=== PATIENT | female | born 1990 | race Caucasian/White ===

== ENCOUNTER 2024-09-07 09:16 | Emergency (ER) | payer BC, OTHER ==
[~2024-09-07] VITALS: Ht 165.1 cm; Wt 112.3 kg
[2024-09-07 10:13] VITALS: BP 134/80; PULSE 76; RESP 16; TEMP 98.2; O2SAT 98
--- NOTE | 2024-09-07 10:20 | ED.PDOC ---
DECORATOR CONSULTANT HPI Comments A 34 YEAR OLD FEMALE PRESENTS TO THE ED WITH COMPLAINT OF VAGINAL SPOTTING AND PELVIC CRAMPING DURING . PATIENT STATES SHE IS CURRENTLY ABOUT 5 WEEKS AND BEGAN TO EXPERIENCE PELVIC CRAMPING WITH VAGINAL SPOTTING OVER THE LAST 2 DAYS. PATIENT DENIES DYSURIA, HEMATURIA, VAGINAL DISCHARGE, FEVER, CHILLS, SHORTNESS OF BREATH, CHEST PAIN, ABDOMINAL PAIN, NAUSEA, VOMITING, HEADACHE, OR OTHER COMPLAINTS. NO OTHER SYMPTOMS OR MODIFYING FACTORS AT THIS TIME. PATIENT IS ALERT, ORIENTED X 4, AND HAS STEADY GAIT. Chief Complaint: Vaginal Bleed Time Seen by MD: 09:33 Reviewed Notes: Nurses Notes, Medications, Allergies Home Meds Active Scripts Nitrofurantoin Monohydrate Mac (Macrobid) 100 Mg Cap, 100 MG PO BID, #14 CAP Prov:ANIYA FRAUSTO 09/07/24 Information Source: Patient Mode of Arrival: Ambulatory Timing: Days Prehospital treatment: None Severity: Moderate Vaginal Discharge: None Vaginal Lesions: None Bleeding Quality: Bright Red Vaginal Mass: None Onset Of Mass/Bleeding: Spontaneous Sexual Activity: Last Consensual [place]: Unknown Control: None History of: Current Blood Type: Unknown Symptoms of Possible : None Associated Signs and Symptoms: Vaginal Bleeding (VAGINAL SPOTTING ), Cramping Past Medical History PAST MEDICAL HISTORY: Denies Surgical History: Denies all surgeries LESSON INSTRUCTOR History: No Pertinent LESSON INSTRUCTOR History Family History Family History: Reviewed,noncontributory to illness Social History Smoker: Non-Smoker Alcohol: Denies ETOH Use Drugs: Denies Drug Use Lives In: Home Constitutional: denies: chills, diaphoresis, fatigue, fever, malaise, sweats, weakness, others EENTM: denies: blurred vision, double vision, ear bleeding, ear discharge, ear drainage, ear pain, ear ringing, eye pain, eye redness, hearing loss, mouth pain, mouth swelling, nasal discharge, nose bleeding, nose congestion, nose pain, photophobia, tearing, throat pain, throat swelling, voice changes, others Respiratory: denies: cough, hemoptysis, orthopnea, SOB at rest, shortness of breath, SOB with excertion, stridor, wheezing, others Cardiovascular: denies: chest pain, dizzy spells, diaphoresis, Dyspnea on exertion, edema, irregular heart beat, left arm pain, lightheadedness, palpitations, PND, syncope, others Gastrointestinal: denies: abdomen distended, abdominal pain, blood streaked bowels, constipated, diarrhea, dysphagia, difficulty swallowing, hematemesis, melena, nausea, poor appetite, poor fluid intake, rectal bleeding, rectal pain, vomiting, others Genitourinary: reports: abnormal vagina bleeding, pain (PELVIC CRAMPING), ; denies: burning, dyspareunia, dysuria, flank pain, frequency, hematuria, incontinence, vagina discharge, urgency, others Neurological: denies: dizziness, fainting, headache, left sided numbness, left sided weakness, numbness, paresthesia, pre-existing deficit, right sided numbness, right sided weakness, seizure, speech problems, tingling, tremors, weakness, others Musculoskeletal: denies: back pain, gout, joint pain, joint swelling, muscle pain, muscle stiffness, neck pain, others Integumetry: denies: bruises, change in color, change in hair/nails, dryness, laceration, lesions, lumps, rash, wounds, others Allergic/Immunocompromised: denies: Difficulty Healing, Frequent Infections, Hives, Itching, others Hematologic/Lymphatic: denies: anemia, blood clots, easy bleeding, easy bruising, swollen glands, others Endocrine: denies: excessive hunger, excessive sweating, excessive thirst, excessive urination, flushing, intolerance to cold, intolerance to heat, unexplained weight gain, unexplained weight loss, others Psychiatric: denies: anxiety, bipolar disorder, depression, hopeless, panic disorder, schizophrenia, sleepless, suicidal, others All Other Systems: Reviewed and Negative Physical Exam General Appearance: No Apparent Distress, Normal HEENT: Normal ENT Inspection, PERRL/EOMI, Pharynx Normal, TMs Normal Neck: Full Range of Motion, Non-Tender, Normal, Normal Inspection Respiratory: Chest Non-Tender, Lungs Clear, No Accessory Muscle Use, No Respiratory Distress, Normal Breath Sounds Cardiovascular: No Edema, No JVD, No Murmur, No Gallop, Normal Peripheral Pulses, Regular Rate/Rhythm Breast Exam: Deferred Gastrointestinal: No Organomegaly, Non Tender, No Pulsatile Mass, Normal Bowel Sounds, Soft Genitalia: Deferred Pelvic: Normal Adnexa, Normal External Exam, Tender Uterus, Other (VAGINAL SPOTTING, NO VAGINAL BLEEDING AND BLOOD CLOTS. ) Rectal: Deferred Extremities: No calf tenderness, Normal capillary refill, Normal inspection, Normal range of motion, Non-tender, No pedal edema Musculoskeletal : Apperance: Normal Neurologic: Alert, gold tooler II-XII nml as Tested, No Motor Deficits, Normal Affect, Normal Mood, No Sensory Deficits Cerebellar Function: Normal Reflexes: Normal Skin: Dry, Normal Color, Warm Peripheral Pulses: 2+ carotid (R), 2+ carotid (L) Lymphatic: No Adenopathy Was a procedure done? Was a procedure done?: No Differential Diagnosis (LESSON INSTRUCTOR) Vaginal Bleeding: - Complete, - Incomplete, - Missed, - Threatened, Menstrual Bleeding, UTI, Vaginitis Mass / Lesion: N/A Vaginal Discharge: UTI, N/A X-Ray, Labs, Meds, VS Vital Signs Date Time Temp Pulse Resp B/P (MAP) Pulse Ox O2 Delivery O2 Flow Rate FiO2 09/07/24 10:13 98.2 76 16 134/80 (98) 98 98.2 09/07/24 10:13 76 16 98 Room Air 09/07/24 10:09 98.2 76 16 139/80 (99) 98 Lab Test 09/07/24 10:13 09/07/24 09:58 Range/Units Urine Color Light-yellow Yellow Urine Clarity Turbid H Clear Urine pH 6.5 5.0-9.0 Urine Specific P[place]ree 1.009 1.001-1.035 Urine Protein Negative Negative Urine Ketones Trace Negative Urine Blood 2+ H Negative /uL Urine Nitrite Negative Negative Urine Bilirubin Negative Negative Urine Urobilinogen Normal Negative mg/dL Urine Leukocyte Esterase 3+ Negative /uL Urine RBC 10 0 - 4 /hpf Urine WBC 8 0 - 5 /hpf Urine Squamous Epithelial Cells Few <5 /hpf Urine Bacteria Few H None Seen /hpf Urine Mucus Few None Seen Urine Glucose Normal Normal mg/dL White Blood Count 10.2 4.4-10.8 10^3/uL Red Blood Count 4.31 4.0-5.20 10^6/uL Hemoglobin 13.7 12.2-16.2 g/dL Hematocrit 39.4 36.0-46.0 % Mean Corpuscular Volume 91.5 80.0-100.0 fL Mean Corpuscular Hemoglobin 31.8 28.0-32.0 pg Mean Corpuscular Hemoglobin Concent 34.8 32.0-36.0 g/dL Red Cell Distribution Width 13.0 11.8-14.3 % Platelet Count 331 140-450 10^3/uL Mean Platelet Volume 7.0 6.9-10.8 fL Neutrophils (%) (Auto) 62.9 37.0-80.0 % Lymphocytes (%) (Auto) 29.5 10.0-50.0 % Monocytes (%) (Auto) 6.0 0.0-12.0 % Eosinophils (%) (Auto) 1.3 0.0-7.0 % Basophils (%) (Auto) 0.3 0.0-2.0 % Neutrophils # (Auto) 6.4 1.6-8.6 10 ^3/uL Lymphocytes # (Auto) 3.0 0.4-5.4 10 ^3/uL Monocytes # (Auto) 0.6 0-1.3 10 ^3/uL Eosinophils # (Auto) 0.1 0-0.8 10 ^3/uL Basophils # (Auto) 0 0-0.2 10 ^3/uL Nucleated Red Blood Cells 0.1 % Beta HCG, Quantitative 1515.2 H 1.5-4.2 mIU/mL OB ULTRASOUND <14 WEEKS: HISTORY: VAGINAL SPOTTING TECHNIQUE: Multiple real-time grayscale sonographic images of the pelvis with duplex Doppler color flow, spectral and M-mode analysis. TRANSDUCERS: Transabdominal and transvaginal FINDINGS: The uterus measures 8.2 x 4.5 x 4.5 cm The cervix well visualized. Right ovary measures 3.4 x 1.9 x 2.6 with normal Doppler color flow. There is a right ovarian corpus luteal cyst measuring 1.8 cm. Left ovary measures 2.0 x 1.2 x 2.4 with normal Doppler color flow Possible gestational sac measuring 0.4 cm. IMPRESSION: Possible gestational sac measuring 0.4 cm. Recommend correlation with beta HCG and short-term follow-up pelvic ultrasound. ATED BY: JUWAN BARRAGAN MD DICTATED DATE/TIME: 09/07/24 1250 SIGNED BY: JUWAN BARRAGAN MD SIGNED DATE/TIME: 09/07/24 1250 CC: X-Ray, Labs, Meds, VS Comment EXTERNAL MEDICAL RECORDS REVIEWED: [NONE] INDEPENDENT HISTORIANS: [NONE] SOCIAL DETERMINANTS OF HEALTH: [NONE] LABS ORDERED: CBC, BMP, UA, URINE , BETA HCG QUANT REVIEWED AND INTERPRETED RESULTS: HCG QUANT 1515, LEUKO 3+ IMAGING ORDERED: US OB < 14 WKS TREATMENTS ORDERED: NONE PROCEDURES PERFORMED: NONE CRITICAL CARE TIME: NONE I HAVE DISCUSSED THE PATIENT WITH THE ATTENDING PHYSICIAN DR. PAYNE AND HE AGREES WITH THE PATIENT'S PLAN OF CARE AND DISPOSITION. BASED ON HISTORY OF PRESENT ILLNESS, AND PHYSICAL EXAM, PATIENT WILL BE DISCHARGED HOME. DISCUSSED PLAN FOR DISCHARGE HOME WITH RX [MACROBID]. MEDICATION WARNINGS GIVEN. SHARED DECISION MAKING: DISCUSSED WITH PATIENT THAT THEIR WORKUP WAS NORMAL. PATIENT INSTRUCTED TO FOLLOW UP WITH PRIMARY CARE PROVIDER IN 1-2 DAYS FOR RE- EVALUATION OF SYMPTOMS. PATIENT VERBALIZES UNDERSTANDING TO RETURN TO ED FOR NEW OR WORSENING SYMPTOMS OR IF FOLLOW UP WITH PCP CANNOT BE OBTAINED. PATIENT FEELS COMFORTABLE GOING HOME AT THIS TIME. ALL QUESTIONS ADDRESSED AT TIME OF DISCHARGE. Images Reviewed?: Images reviewed and evaluated by me Time of 1ST Reevaluation: 12:52 Reevaluation 1ST: Improved Patient Education/Counseling: Diagnosis, Treatment, Need For Follow Up Family Education/Counseling: Diagnosis, Treatment, Need For Follow Up Medical Screening: No EMC Exist At This Time Departure 1 Departure Time of Disposition: 13:00 Impression: Primary Impression: Vaginal spotting Additional Impressions: Threatened in early Acute UTI (urinary tract infection) Disposition: 01 HOME / SELF CARE / HOMELESS Condition: Stable Additional Instructions: FOLLOW-UP WITH PCP AND DECORATOR CONSULTANT IN 1 TO 2 DAYS. TAKE MEDICATIONS PRESCRIBED. RETURN TO ED FOR ANY NEW OR WORSENING SYMPTOMS. e-Prescriptions Nitrofurantoin Monohydrate Mac (Macrobid) 100 Mg Cap 100 MG PO BID, #14 CAP Prov: ANIYA FRAUSTO 09/07/24 Discharged With: Self Critical Care Note Critical Care Time?: No Stability Stability form required: No I personally scribed for ANIYA FRAUSTO ([email or web address]) on 09/07/24 at 10:20. Electronically submitted by Chris Chan ([email or web address]). I personally scribed for ANIYA FRAUSTO ([email or web address]) on 09/07/24 at 12:48. Electronically submitted by Chris Chan ([email or web address]). I personally scribed for ANIYA FRAUSTO ([email or web address]) on 09/07/24 at 12:54. Electronically submitted by Chris Chan ([email or web address]). ANIYA FRAUSTO Sep 07, 2024 10:20
[2024-09-07 11:08] LABS: Basophils # (auto) 0 10 ^3/uL (0-0.2); Basophils % (auto) 0.3 % (0.0-2.0); Eosinophils # (auto) 0.1 10 ^3/uL (0-0.8); Eosinophils % (auto) 1.3 % (0.0-7.0); Hematocrit 39.4 % (36.0-46.0); Hemoglobin 13.7 g/dL (12.2-16.2); Lymphocytes % (auto) 29.5 % (10.0-50.0); Mean Corpuscular Hemoglobin 31.8 pg (28.0-32.0); Mean Corpuscular Hgb Conc. 34.8 g/dL (32.0-36.0); Mean Corpuscular Volume 91.5 fL (80.0-100.0); Monocytes # (auto) 0.6 10 ^3/uL (0-1.3); Neutrophils # (auto) 6.4 10 ^3/uL (1.6-8.6); Neutrophils % (auto) 62.9 % (37.0-80.0); Nucleated Red Blood Cells % 0.1 %; Platelet Count (auto) 331 10^3/uL (140-450); Red Blood Cells 4.31 10^6/uL (4.0-5.20); White Blood Cell 10.2 10^3/uL (4.4-10.8)
[2024-09-07 11:25] LABS: Urine Bacteria FEW /hpf (None Seen); Urine Blood 2+ /uL (Negative); Urine Clarity Turbid (Clear); Urine Color Light-Yellow (Yellow); Urine Mucus FEW (None Seen); Urine Protein, UAD Negative (Negative); Urine Specific Gravity 1.009 (1.001-1.035); Urine Squamous Epithelial Cell FEW /hpf (<5); Urine Urobilinogen Normal (Negative); Urine WBC 8 /hpf (0 - 5); Urine pH 6.5 (5.0-9.0)
--- NOTE | 2024-09-07 12:51 | DVH ---
OB ULTRASOUND <14 WEEKS: HISTORY: VAGINAL SPOTTING TECHNIQUE: Multiple real-time grayscale sonographic images of the pelvis with duplex Doppler color f low, spectral and M-mode analysis. TRANSDUCERS: Transabdominal and transvaginal FINDINGS: The uterus measures 8.2 x 4.5 x 4.5 cm The cervix well visualized. Right ovary measures 3.4 x 1.9 x 2.6 with normal Doppler color flow. There is a right ovarian corpus luteal cyst measuring 1.8 cm. Left ovary measures 2.0 x 1.2 x 2.4 with normal Doppler color flow Possible gestational sac measuring 0.4 cm. IMPRESSION: Possible gestational sac measuring 0.4 cm. Recommend correlation with beta HCG and short-term follow- up pelvic ultrasound.
[2024-09-07] MEDS ORDERED: NITR-87 PO (12:53)
== END 2024-09-07 12:59 | disposition home or self-care (01) ==
LOC: ER 09:16
DX: O26.851 Spotting complicating pregnancy, first trimester (principal); O20.0 Threatened abortion; O23.41 Unspecified infection of urinary tract in pregnancy, first trimester; N39.0 Urinary tract infection, site not specified; Z3A.01 Less than 8 weeks gestation of pregnancy; Z79.899 Other long term (current) drug therapy
CPT/HCPCS: 36415; 76801; 76817; 81001; 84702; 85025

== ENCOUNTER 2025-02-28 14:55 | Observation (INO) | payer BC ==
[~2025-02-28 14:55] MED LIST: NITR-87 PO
[2025-02-28] MEDS ORDERED: PREN-96 PO (15:36)
--- NOTE | 2025-02-28 17:20 | DVHDS2 ---
Physician Discharge Progress N Final Diagnosis: testing for IUGR/GDM, A1 Operations or Procedures: Operations or Procedures 35yo IUP@29.6wks VSS NST reactive for GA FKC/PTL precautions reviewed. Dr. Preston consulted, agrees with POC. Condition on Discharge: Stable Disposition: Home Discharge Instructions: Diet: Consistent carbohydrate Activity: No Restrictions, As Tolerated Medications: see med list Follow Up Care: Specialist: f/u in 1 wk Discharge Statement: "Patient was advised to return to the ER or call 911 if any headaches, dizziness, shortness of breath, chest pain, abdominal pain, bleeding, fevers, or worsening of medical condition. Patient was counseled about treatment plan, medications, possible side effects, patientverbalized understanding. All questions were answered to the best of my ability. This discharge took greater then 30 minutes in planning, reviewing documentation, counseling the patient, and discussing with other team members." Visit Coding OBGYN Date of Service: Feb 28, 2025 Billing Provider: MENDEZ GARCIA CNM PEPPER CUTTER Common Visit Codes: 20241-CFTWOPN OBS CARE (HIGH) PEPPER CUTTER Procedure Codes: 94055-38- NON-STRESS TEST MENDEZ GARCIA CNM Feb 28, 2025 17:20
== END 2025-02-28 15:51 | disposition home or self-care (01) ==
LOC: LDRP 14:55
PROVIDERS: ADMIT Obstetrics & Gynecology; ATTEND Obstetrics & Gynecology
DX: O36.5930 Maternal care for other known or suspected poor fetal growth, third trimester, not applicable or unspecified (principal); O24.419 Gestational diabetes mellitus in pregnancy, unspecified control; Z98.890 Other specified postprocedural states; Z79.899 Other long term (current) drug therapy; Z3A.29 29 weeks gestation of pregnancy
CPT/HCPCS: 59025; 81002; 82948; 82962; 94760; G0378

== ENCOUNTER 2025-03-07 07:11 | Observation (INO) | payer BC ==
[~2025-03-07 07:11] MED LIST changes: +PREN-96 PO
--- NOTE | 2025-03-07 18:54 | DVHDS2 ---
Physician Discharge Progress N Final Diagnosis: testing for IUGR/GDM, A1 Operations or Procedures: Operations or Procedures 35yo IUP@30.4wks VSS NST reactive FKC/PTL precautions reviewed Dr. Preston consulted, agrees with POC. Condition on Discharge: Stable Disposition: Home Discharge Instructions: Diet: Consistent carbohydrate Activity: No Restrictions, As Tolerated Medications: see med list Follow Up Care: Specialist: f/u in 1wk Discharge Statement: "Patient was advised to return to the ER or call 911 if any headaches, dizziness, shortness of breath, chest pain, abdominal pain, bleeding, fevers, or worsening of medical condition. Patient was counseled about treatment plan, medications, possible side effects, patientverbalized understanding. All questions were answered to the best of my ability. This discharge took greater then 30 minutes in planning, reviewing documentation, counseling the patient, and discussing with other team members." Visit Coding OBGYN Date of Service: Mar 07, 2025 Billing Provider: MENDEZ GARCIA CNM STARCH TREATING ASSISTANT Common Visit Codes: [id number] OBS CARE (HIGH) STARCH TREATING ASSISTANT Procedure Codes: 17360-96- NON-STRESS TEST MENDEZ GARCIA CNM Mar 07, 2025 18:54
== END 2025-03-07 16:30 | disposition home or self-care (01) ==
LOC: UNDOADMOB 15:00 → LDRP 15:00
PROVIDERS: ADMIT Obstetrics & Gynecology; ATTEND Obstetrics & Gynecology
DX: O36.5930 Maternal care for other known or suspected poor fetal growth, third trimester, not applicable or unspecified (principal); O24.419 Gestational diabetes mellitus in pregnancy, unspecified control; Z3A.30 30 weeks gestation of pregnancy; Z79.899 Other long term (current) drug therapy; Z98.890 Other specified postprocedural states
CPT/HCPCS: 59025; 81002; 82948; 82962; G0378

== ENCOUNTER 2025-03-14 09:33 | Observation (INO) | payer BC ==
--- NOTE | 2025-03-14 16:58 | DVHDS2 ---
Physician Discharge Progress N Final Diagnosis: testing for IUGR and GDM, A1 Operations or Procedures: Operations or Procedures 35yo IUP@31.6wks VSS NST reactive FKC/PTL precautions reviewed Dr. Preston consulted, agrees with POC. Condition on Discharge: Stable Disposition: Home Discharge Instructions: Diet: Consistent carbohydrate Activity: No Restrictions, As Tolerated Medications: see med list Follow Up Care: Specialist: f/u in 1wk Discharge Statement: "Patient was advised to return to the ER or call 911 if any headaches, dizziness, shortness of breath, chest pain, abdominal pain, bleeding, fevers, or worsening of medical condition. Patient was counseled about treatment plan, medications, possible side effects, patientverbalized understanding. All questions were answered to the best of my ability. This discharge took greater then 30 minutes in planning, reviewing documentation, counseling the patient, and discussing with other team members." Visit Coding OBGYN Date of Service: Mar 14, 2025 Billing Provider: MENDEZ GARCIA CNM GREY ROLL WORKER Common Visit Codes: 48653-AHHSCRD OBS CARE (HIGH) GREY ROLL WORKER Procedure Codes: 48125-21- NON-STRESS TEST MENDEZ GARCIA CNM Mar 14, 2025 16:58
== END 2025-03-14 16:49 | disposition home or self-care (01) ==
LOC: LDRP 15:45
PROVIDERS: ADMIT Obstetrics & Gynecology; ATTEND Obstetrics & Gynecology
DX: O24.419 Gestational diabetes mellitus in pregnancy, unspecified control (principal); O36.5930 Maternal care for other known or suspected poor fetal growth, third trimester, not applicable or unspecified; Z3A.31 31 weeks gestation of pregnancy; Z98.890 Other specified postprocedural states; Z79.899 Other long term (current) drug therapy
CPT/HCPCS: 59025; 81002; 82948; 82962; G0378

== ENCOUNTER 2025-03-21 15:55 | Observation (INO) | payer BC ==
--- NOTE | 2025-03-21 17:31 | DVH ---
BIOPHYSICAL PROFILE HISTORY: GDMA1/IUGR TECHNIQUE: Multiple transabdominal real-time grayscale sonographic images through the gravid uterus of the fetus with duplex Doppler color flow and M-mode spectral analysis FINDINGS: BIOPHYSICAL PROFILE: breathing score: 2 movement score: 2 tone score: 2 Quantitative DIONE score: 2 (DIONE: 14 Cm MVP: 5.3 cm.) Total score: 8/8 The cervix 4.1 cm Single live fetus in cephalic presentation. heart rate beats per minute. Posterior Grade 2 placenta without previa or abruption Single live fetus at 32 weeks 6 days Biophysical profile score 8/8 corresponding to an MYAH of 05/10/2025 IMPRESSION: 1. Biophysical profile score: 8/8
--- NOTE | 2025-03-21 18:31 | DVHDS2 ---
Physician Discharge Progress N Final Diagnosis: testing for GDM, A1 Operations or Procedures: Operations or Procedures 35yo IUP@32.6wks VSS NST reactive FKC/PTL precautions reviewed Dr. Preston consulted, agrees with POC. Other Interventions Other Interventions [address] [address] Ph: [phone] DIAGNOSTIC IMAGING Diagnostic Imaging Report : [id number] Signed PATIENT: LUISA SOTELO ACCT: [id number] UNIT: [id number] : 1990 LOC: [facility] ROOM / BED: TRIAGE2 / A AGE / SEX: 35 / F ADM STATUS: ADM IN SERVICE 1607 ORDERING PHYSICIAN: MENDEZ GARCIA CNM PROCEDURE(s): BPP - BIOPHYSICAL PROFILE REASON: GDMA1/IUGR ORDER NUMBER(s): [id number], ACCESSION NUMBER(s): [id number] BIOPHYSICAL PROFILE HISTORY: GDMA1/IUGR TECHNIQUE: Multiple transabdominal real-time grayscale sonographic images through the gravid uterus of the fetus with duplex Doppler color flow and M-mode spectral analysis FINDINGS: BIOPHYSICAL PROFILE: breathing score: 2 movement score: 2 tone score: 2 Quantitative DIONE score: 2 (DIONE: 14 Cm MVP: 5.3 cm.) Total score: 8/8 The cervix 4.1 cm Single live fetus in cephalic presentation. heart rate beats per minute. Posterior Grade 2 placenta without previa or abruption Single live fetus at 32 weeks 6 days Biophysical profile score 8/8 corresponding to an MYAH of 05/10/2025 IMPRESSION: 1. Biophysical profile score: 8/8 ATED BY: JEFE BAIN Jr., DO DICTATED DATE/TIME: 03/21/251727 SIGNED BY: JEFE BAIN Jr., DO SIGNED DATE/TIME: 03/21/251727 CC: Condition on Discharge: Stable Disposition: Home Discharge Instructions: Diet: Consistent carbohydrate Activity: No Restrictions, As Tolerated Medications: see med list Follow Up Care: Specialist: f/u in 1 wk Discharge Statement: "Patient was advised to return to the ER or call 911 if any headaches, dizziness, shortness of breath, chest pain, abdominal pain, bleeding, fevers, or worsening of medical condition. Patient was counseled about treatment plan, medications, possible side effects, patientverbalized understanding. All questions were answered to the best of my ability. This discharge took greater then 30 minutes in planning, reviewing documentation, counseling the patient, and discussing with other team members." Visit Coding OBGYN Date of Service: Mar 21, 2025 Billing Provider: MENDEZ GARCIA CNM CYBER SYSTEMS ENGINEER Common Visit Codes: [id number] OBS CARE (HIGH) CYBER SYSTEMS ENGINEER Procedure Codes: 02742-49- NON-STRESS TEST MENDEZ GARCIA CNM Mar 21, 2025 18:31
== END 2025-03-21 17:27 | disposition home or self-care (01) ==
LOC: LDRP 15:55
PROVIDERS: ADMIT Obstetrics & Gynecology; ATTEND Obstetrics & Gynecology
DX: O24.419 Gestational diabetes mellitus in pregnancy, unspecified control (principal); Z79.899 Other long term (current) drug therapy; Z3A.32 32 weeks gestation of pregnancy
CPT/HCPCS: 76818; 81002; 82948; 82962; 94760; G0378; 59025; 76819

== ENCOUNTER 2025-03-28 14:00 | Observation (INO) | payer BC ==
--- NOTE | 2025-03-28 16:21 | DVHDS2 ---
Physician Discharge Progress N Final Diagnosis: testing for GDM, A1 Operations or Procedures: Operations or Procedures 35yo IUP@33.6WKS VSS NST reactive FKC/PTL precautions reviewed Dr. Preston consulted, agrees with POC. Other Interventions Other Interventions [address] [address] Ph: [phone] DIAGNOSTIC IMAGING Diagnostic Imaging Report : [id number] Signed PATIENT: LUISA SOTELO ACCT: [id number] UNIT: [id number] : 1990 LOC: LD ROOM / BED: TRIAGE1 / A AGE / SEX: 35 / F ADM STATUS: ADM IN SERVICE 1615 ORDERING PHYSICIAN: MENDEZ GARCIA CNM PROCEDURE(s): BPP - BIOPHYSICAL PROFILE REASON: GDMA1 ORDER NUMBER(s): [id number], ACCESSION NUMBER(s): [id number] BIOPHYSICAL PROFILE HISTORY: GDMA1 TECHNIQUE: Multiple transabdominal real-time grayscale sonographic images through the gravid uterus of the fetus with duplex Doppler color flow and M-mode spectral analysis FINDINGS: BIOPHYSICAL PROFILE: breathing score: 2 movement score: 2 tone score: 2 Quantitative DIONE score: 2 (DIONE: 16 Cm.) Total score: 8 The cervix is closed measuring 3.6 cm Single live fetus in cephalic presentation. heart rate 130 beats per minute. Posterior placenta without previa or abruption IMPRESSION: Biophysical profile score: 8 ATED BY: JOHANNA JUARES DO DICTATED DATE/TIME: 03/28/251657 SIGNED BY: JOHANNA JUARES DO SIGNED DATE/TIME: 03/28/251657 CC: Condition on Discharge: Stable Disposition: Home Discharge Instructions: Diet: Consistent carbohydrate Activity: No Restrictions, As Tolerated Medications: see med list Follow Up Care: Specialist: f/u in 1 wk Discharge Statement: "Patient was advised to return to the ER or call 911 if any headaches, dizziness, shortness of breath, chest pain, abdominal pain, bleeding, fevers, or worsening of medical condition. Patient was counseled about treatment plan, medications, possible side effects, patientverbalized understanding. All questions were answered to the best of my ability. This discharge took greater then 30 minutes in planning, reviewing d ocumentation, counseling the patient, and discussing with other team members." Visit Coding OBGYN Date of Service: Mar 28, 2025 Billing Provider: MENDEZ GARCIA CNM SQL DATA ANALYST Common Visit Codes: 08694-[id number] OBS CARE (HIGH) SQL DATA ANALYST Procedure Codes: 37539-96- NON-STRESS TEST MENDEZ GARCIA CNM Mar 28, 2025 16:21
--- NOTE | 2025-03-28 17:01 | DVH ---
BIOPHYSICAL PROFILE HISTORY: GDMA1 TECHNIQUE: Multiple transabdominal real-time grayscale sonographic images through the gravid uterus of the fetus with duplex Doppler color flow and M-mode spectral analysis FINDINGS: BIOPHYSICAL PROFILE: breathing score: 2 movement score: 2 tone score: 2 Quantitative DIONE score: 2 (DIONE: 16 Cm.) Total score: 8 The cervix is closed measuring 3.6 cm Single live fetus in cephalic presentation. heart rate 130 beats per minute. Posterior placenta without previa or abruption IMPRESSION: Biophysical profile score: 8
[2025-03-28] MEDS ORDERED: ASPI-543 PO (17:18)
[2025-03-28] MEDS ORDERED: LEVE250T18 PO (17:18)
== END 2025-03-28 17:25 | disposition home or self-care (01) ==
LOC: LDRP 14:00
PROVIDERS: ADMIT Obstetrics & Gynecology; ATTEND Obstetrics & Gynecology
DX: O24.419 Gestational diabetes mellitus in pregnancy, unspecified control (principal); Z3A.33 33 weeks gestation of pregnancy; Z87.891 Personal history of nicotine dependence; Z79.899 Other long term (current) drug therapy
CPT/HCPCS: 76818; 81002; 82948; 82962; G0378; 59025; 76819

== ENCOUNTER 2025-04-04 15:47 | Observation (INO) | payer BC ==
[~2025-04-04 15:47] MED LIST changes: +ASPI-543 PO; +LEVE250T18 PO
--- NOTE | 2025-04-04 16:32 | DVH ---
EXAM: US BIOPHYSICAL PROFILE HISTORY: GDMA1 COMPARISON: US BIOPHYSICAL PROFILE on DOS: 03/28/25 TECHNIQUE: Multiple transabdominal real-time grayscale sonographic images through the gravid uterus of the fetus with duplex Doppler color flow and M-mode spectral analysis Findings/Impression: Single live intrauterine in vertex presentation with heart rate of 136 bpm. Biophysical profile was performed with 2 points for respirations, 2 points for movement, 2 points for tone and 2 points for amniotic fluid index. Biophysical profile score of 8/8. Amniotic fluid is within normal limits with DIONE 17.2 cm and MVP 7.3 cm. Normal DIONE (5-25 cm) Normal MVP (2-8 cm)
--- NOTE | 2025-04-04 16:58 | DVHDS2 ---
Physician Discharge Progress N Final Diagnosis: testing for GDM, A1 Secondary Diagnosis: hx of seizures Operations or Procedures: Operations or Procedures 35yo IUP@34+wks, takes chetna, last seizure 7 years ago VSS NST reactive FKC/PTL precautions reviewed. Dr. Preston consulted, agrees with POC. Other Interventions Other Interventions [place] [address] Ph: [phone] DIAGNOSTIC IMAGING Diagnostic Imaging Report : [id number] Signed PATIENT: LUISA SOTELO ACCT: [id number] UNIT: [id number] : 1990 LOC: [facility] ROOM / BED: TRIAGE2 / A AGE / SEX: 35 / F ADM STATUS: ADM IN SERVICE 1548 ORDERING PHYSICIAN: MENDEZ GARCIA CNM PROCEDURE(s): BPP - BIOPHYSICAL PROFILE REASON: [email or web address] ORDER NUMBER(s): [id number], ACCESSION NUMBER(s): [id number] EXAM: US BIOPHYSICAL PROFILE HISTORY: [email or web address] COMPARISON: US BIOPHYSICAL PROFILE on DOS: 03/28/25 TECHNIQUE: Multiple transabdominal real-time grayscale sonographic images through the gravid uterus of the fetus with duplex Doppler color flow and M-mode spectral analysis Findings/Impression: Single live intrauterine in vertex presentation with heart rate of 136 bpm. Biophysical profile was performed with 2 points for respirations, 2 points for movement, 2 points for tone and 2 points for amniotic fluid index. Biophysical profile score of 8/8. Amniotic fluid is within normal limits with DIONE 17.2 cm and MVP 7.3 cm. Normal DIONE (5-25 cm) Normal MVP (2-8 cm) ATED BY: CAROLINA LUEVANO DO DICTATED DATE/TIME: 04/04/251629 SIGNED BY: CAROLINA LUEVANO DO SIGNED DATE/TIME: 04/04/251629 CC: Condition on Discharge: Stable Disposition: Home Discharge Instructions: Diet: Consistent carbohydrate Activity: No Restrictions, As Tolerated Follow Up/Referral: as scheduled Medications: see med list Follow Up Care: Specialist: f/u in 1 wk Discharge Statement: "Patient was advised to return to the ER or call 911 if any headaches, dizziness, shortness of breath, chest pain, abdominal pain, bleeding, fevers, or worsening of medical condition. Patient was counseled about treatment plan, medications, possible side effects, patientverbalized understanding. All questions were answered to the best of my ability. This discharge took greater then 30 minutes in planning, reviewing documentation, counseling the patient, and discussing with other team members." Visit Coding OBGYN Date of Service: Apr 04, 2025 Billing Provider: MENDEZ GARCIA CNM LAB COURIER Common Visit Codes: [id number] OBS CARE (HIGH) LAB COURIER Procedure Codes: 08526-34- NON-STRESS TEST MENDEZ GARCIA CNM Apr 04, 2025 16:58
== END 2025-04-04 16:49 | disposition home or self-care (01) ==
LOC: UNDOADMOB 15:47 → LDRP 15:47 → UNDODISOB 16:49
PROVIDERS: ADMIT Obstetrics & Gynecology; ATTEND Obstetrics & Gynecology
DX: O24.419 Gestational diabetes mellitus in pregnancy, unspecified control (principal); Z3A.34 34 weeks gestation of pregnancy; Z79.899 Other long term (current) drug therapy; Z86.69 Personal history of other diseases of the nervous system and sense organs
CPT/HCPCS: 59025; 76818; 76819; 81002; 82948; 82962; 94760

== ENCOUNTER 2025-04-11 08:24 | Observation (INO) | payer BC ==
--- NOTE | 2025-04-11 16:56 | DVH ---
BIOPHYSICAL PROFILE HISTORY: gdma1 TECHNIQUE: Multiple real-time grayscale sonographic images through the gravid uterus of the fetus wi th duplex Doppler color flow. FINDINGS: BIOPHYSICAL PROFILE: breathing score: 2 movement score: 2 tone score: 2 Quantitative DIONE score: 2 Total score: 8 out of 8 Single live intrauterine . heart rate of 138 beats per minute. Placenta posteriorly positioned. DIONE 17.3 cm. IMPRESSION: Biophysical profile score: 8 out of 8
--- NOTE | 2025-04-11 17:18 | DVHDS2 ---
Physician Discharge Progress N Final Diagnosis: testing for GDM, A1/epilepsy Operations or Procedures: Operations or Procedures 35yo iup@35.6wks VSS NST reactive FKC/PTL precautions reviewed Dr. Preston consulted, agrees with POC. Other Interventions Other Interventions [facility] [id number] [place] [address] Ph: [phone] DIAGNOSTIC IMAGING Diagnostic Imaging Report : [id number] Signed PATIENT: LUISA SOTELO ACCT: [id number] UNIT: [id number] : 1990 LOC: [facility] ROOM / BED: TRIAGE1 / A AGE / SEX: 35 / F ADM STATUS: ADM IN SERVICE 1611 ORDERING PHYSICIAN: MENDEZ GARCIA CNM PROCEDURE(s): BPP - BIOPHYSICAL PROFILE REASON: gdma1 ORDER NUMBER(s): [id number], ACCESSION NUMBER(s): [id number] BIOPHYSICAL PROFILE HISTORY: gdma1 TECHNIQUE: Multiple real-time grayscale sonographic images through the gravid uterus of the fetus with duplex Doppler color flow. FINDINGS: BIOPHYSICAL PROFILE: breathing score: 2 movement score: 2 tone score: 2 Quantitative DIONE score: 2 Total score: 8 out of 8 Single live intrauterine . heart rate of 138 beats per minute. Placenta posteriorly positioned. DIONE 17.3 cm. IMPRESSION: Biophysical profile score: 8 out of 8 ATED BY: SEBLE DICK MD DICTATED DATE/TIME: 04/11/251655 SIGNED BY: SEBLE DICK MD SIGNED DATE/TIME: 04/11/251655 CC: Condition on Discharge: Stable Disposition: Home Discharge Instructions: Diet: Consistent carbohydrate Activity: No Restrictions, As Tolerated Medications: see med list Follow Up Care: Specialist: f/u in 1 wk Discharge Statement: "Patient was advised to return to the ER or call 911 if any headaches, dizziness, shortness of breath, chest pain, abdominal pain, bleeding, fevers, or worsening of medical condition. Patient was counseled about treatment plan, medications, possible side effects, patientverbalized understanding. All questions were answered to the best of my ability. This discharge took greater then 30 minutes in planning, reviewing documentation, counseling the patient, and discussing with other team members." Visit Coding OBGYN Date of Service: Apr 11, 2025 Billing Provider: MENDEZ GARCIA CNM METROLOGY TECHNICIAN Common Visit Codes: [id number] OBS CARE (HIGH) METROLOGY TECHNICIAN Procedure Codes: 72379-02- NON-STRESS TEST MENDEZ GARCIA CNM Apr 11, 2025 17:18
== END 2025-04-11 17:22 | disposition home or self-care (01) ==
LOC: UNDOADMOB 15:56 → LDRP 15:56 → UNDODISOB 17:22
PROVIDERS: ADMIT Obstetrics & Gynecology; ATTEND Obstetrics & Gynecology
DX: O24.419 Gestational diabetes mellitus in pregnancy, unspecified control (principal); Z98.890 Other specified postprocedural states; Z79.899 Other long term (current) drug therapy; Z3A.35 35 weeks gestation of pregnancy
CPT/HCPCS: 76818; 81002; 82948; 82962; 94760; G0378; 59025; 76819

== ENCOUNTER 2025-04-18 07:12 | Observation (INO) | payer BC ==
--- NOTE | 2025-04-18 16:07 | DVH ---
EXAM: US BIOPHYSICAL PROFILE HISTORY: gdma1 COMPARISON: US BIOPHYSICAL PROFILE on DOS: 04/11/25, US BIOPHYSICAL PROFILE on DOS: 04/04/25, US BIOPHYS ICAL PROFILE on DOS: 03/28/25 TECHNIQUE: Multiple transabdominal real-time grayscale sonographic images through the gravid uterus of the fetus with duplex Doppler color flow and M-mode spectral analysis Findings/Impression: Single live intrauterine in vertex presentation with heart rate of 143 bpm. Biophysical profile was performed with 2 points for respirations, 2 points for movement, 2 points for tone and 2 points for amniotic fluid index. Biophysical profile score of 8/8. Amniotic fluid is within normal limits with DIONE 15.3 cm and MVP 6.6 cm. Normal DIONE (5-25 cm) Normal MVP (2-8 cm)
[2025-04-18] MEDS ORDERED: CEPH500C PO (17:16)
--- NOTE | 2025-04-18 17:21 | DVHDS2 ---
Physician Discharge Progress N Final Diagnosis: UTI testing for GDM, A1 Operations or Procedures: Operations or Procedures 35yo IUP@36.6wks, pt c/o UTI symptoms VSS NST reactive FKC/PTL/labor precautions reviewed Rx sent for keflex Other Interventions Other Interventions [address] [address] Ph: [phone] DIAGNOSTIC IMAGING Diagnostic Imaging Report : [id number] Signed PATIENT: LUISA SOTELO ACCT: [id number] UNIT: [id number] : 1990 LOC: [facility] ROOM / BED: [facility] / A AGE / SEX: 35 / F ADM STATUS: ADM IN SERVICE 151 ORDERING PHYSICIAN: MENDEZ GARCIA CNM PROCEDURE(s): BPP - BIOPHYSICAL PROFILE REASON: gdma1 ORDER NUMBER(s): [id number], ACCESSION NUMBER(s): [id number] EXAM: US BIOPHYSICAL PROFILE HISTORY: gdma1 COMPARISON: US BIOPHYSICAL PROFILE on DOS: 04/11/25, US BIOPHYSICAL PROFILE on DOS: 04/04/25, US BIOPHYSICAL PROFILE on DOS: 03/28/25 TECHNIQUE: Multiple transabdominal real-time grayscale sonographic images through the gravid uterus of the fetus with duplex Doppler color flow and M-mode spectral analysis Findings/Impression: Single live intrauterine in vertex presentation with heart rate of 143 bpm. Biophysical profile was performed with 2 points for respirations, 2 points for movement, 2 points for tone and 2 points for amniotic fluid index. Biophysical profile score of 8/8. Amniotic fluid is within normal limits with DIONE 15.3 cm and MVP 6.6 cm. Normal DIONE (5-25 cm) Normal MVP (2-8 cm) ATED BY: CAROLINA SIM DO DICTATED DATE/TIME: 04/18/251604 SIGNED BY: CAROLINA SIM DO SIGNED DATE/TIME: 04/18/251604 CC: Condition on Discharge: Stable Disposition: Home Discharge Instructions: Diet: Consistent carbohydrate Activity: Light activity Medications: see med list Follow Up Care: Specialist: f/u in 1wk Discharge Statement: "Patient was advised to return to the ER or call 911 if any headaches, dizziness, shortness of breath, chest pain, abdominal pain, bleeding, fevers, or worsening of medical condition. Patient was counseled about treatment plan, medications, possible side effects, patientverbalized understanding. All questions were answered to the best of my ability. This discharge took greater then 30 minutes in planning, reviewing documentation, counseling the patient, and discussing with other team members." Visit Coding OBGYN Date of Service: Apr 18, 2025 Billing Provider: MENDEZ GARCIA CNM AUTO CRANE DRIVER Common Visit Codes: [id number] OBS CARE (HIGH) AUTO CRANE DRIVER Procedure Codes: 05764-18- NON-STRESS TEST MENDEZ GARCIA CNM Apr 18, 2025 17:21
== END 2025-04-18 16:41 | disposition home or self-care (01) ==
LOC: UNDOADMOB 15:10 → LDRP 15:10 → UNDODISOB 16:41
PROVIDERS: ADMIT Obstetrics & Gynecology; ATTEND Obstetrics & Gynecology
DX: O24.419 Gestational diabetes mellitus in pregnancy, unspecified control (principal); O23.43 Unspecified infection of urinary tract in pregnancy, third trimester; N39.0 Urinary tract infection, site not specified; Z3A.36 36 weeks gestation of pregnancy; Z79.899 Other long term (current) drug therapy
CPT/HCPCS: 76818; 81002; 82948; 94760; G0378; 59025; 76819

== ENCOUNTER 2025-04-25 15:50 | Observation (INO) | payer BC ==
[~2025-04-25 15:50] MED LIST changes: +CEPH500C PO
--- NOTE | 2025-04-25 17:23 | DVH ---
EXAM: US BIOPHYSICAL PROFILE HISTORY: gdma1 COMPARISON: US BIOPHYSICAL PROFILE on DOS: 04/18/25, US BIOPHYSICAL PROFILE on DOS: 04/11/25, US BIOPHYS ICAL PROFILE on DOS: 04/04/25 TECHNIQUE: Multiple transabdominal real-time grayscale sonographic images through the gravid uterus of the fetus with duplex Doppler color flow and M-mode spectral analysis Findings/Impression: Single live intrauterine in vertex presentation with heart rate of 139 bpm. Biophysical profile was performed with 2 points for respirations, 2 points for movement, 2 points for tone and 2 points for amniotic fluid index. Biophysical profile score of 8/8. Amniotic fluid is within normal limits with DIONE 14.8 cm and MVP 4.1 cm. Normal DIONE (5-25 cm) Normal MVP (2-8 cm)
--- NOTE | 2025-04-25 19:23 | DVHDS2 ---
Physician Discharge Progress N Final Diagnosis: testing for GDM, A1/seizures on keppra Operations or Procedures: Operations or Procedures 35yo IUP@37.6wks VSS NST reactive FKC/labor precautions reviewed. Dr. Preston consulted, agrees with POC. Other Interventions Other Interventions [address] [address] Ph: [phone] DIAGNOSTIC IMAGING Diagnostic Imaging Report : [id number] Signed PATIENT: LUISA SOTELO ACCT: [id number] UNIT: [id number] : 1990 LOC: [facility] ROOM / BED: TRIAGE3 / A AGE / SEX: 35 / F ADM STATUS: ADM IN SERVICE 4549 ORDERING PHYSICIAN: MENDEZ GARCIA CNM PROCEDURE(s): BPP - BIOPHYSICAL PROFILE REASON: gdma1 ORDER NUMBER(s): [id number], ACCESSION NUMBER(s): [id number] EXAM: US BIOPHYSICAL PROFILE HISTORY: gdma1 COMPARISON: US BIOPHYSICAL PROFILE on DOS: 04/18/25, US BIOPHYSICAL PROFILE on DOS: 04/11/25, US BIOPHYSICAL PROFILE on DOS: 04/04/25 TECHNIQUE: Multiple transabdominal real-time grayscale sonographic images through the gravid uterus of the fetus with duplex Doppler color flow and M-mode spectral analysis Findings/Impression: Single live intrauterine in vertex presentation with heart rate of 139 bpm. Biophysical profile was performed with 2 points for respirations, 2 points for movement, 2 points for tone and 2 points for amniotic fluid index. Biophysical profile score of 8/8. Amniotic fluid is within normal limits with DIONE 14.8 cm and MVP 4.1 cm. Normal DIONE (5-25 cm) Normal MVP (2-8 cm) ATED BY: CAROLINA LUEVANO DO DICTATED DATE/TIME: 04/25/251719 SIGNED BY: CAROLINA LUEVANO DO SIGNED DATE/TIME: 04/25/251719 CC: Condition on Discharge: Stable Disposition: Home Discharge Instructions: Diet: Regular Activity: No Restrictions, As Tolerated Medications: see med list Follow Up Care: Specialist: f/u 1 wk Discharge Statement: "Patient was advised to return to the ER or call 911 if any headaches, dizziness, shortness of breath, chest pain, abdominal pain, bleeding, fevers, or worsening of medical condition. Patient was counseled about treatment plan, medications, possible side effects, patientverbalized understanding. All questions were answered to the best of my ability. This discharge took greater then 30 minutes in planning, reviewing documentation, counseling the patient, and discussing with other team members." Visit Coding OBGYN Date of Service: Apr 25, 2025 Billing Provider: MENDEZ GARCIA CNM CNC CUTTING OPERATOR Common Visit Codes: [id number] OBS CARE (HIGH) CNC CUTTING OPERATOR Procedure Codes: 43845-61- NON-STRESS TEST MENDEZ GARCIA CNM Apr 25, 2025 19:23
== END 2025-04-25 17:33 | disposition home or self-care (01) ==
LOC: LDRP 15:50 → UNDOADMOB 15:50 → LDRP 15:59 → UNDODISOB 17:33
PROVIDERS: ADMIT Obstetrics & Gynecology; ATTEND Obstetrics & Gynecology
DX: O24.419 Gestational diabetes mellitus in pregnancy, unspecified control (principal); Z3A.37 37 weeks gestation of pregnancy; Z98.890 Other specified postprocedural states; Z79.899 Other long term (current) drug therapy
CPT/HCPCS: 76818; 81002; 82948; 82962; 94760; G0378; 59025; 76819

== ENCOUNTER 2025-05-01 10:25 | Inpatient (IN) | payer BC ==
[~2025-05-01] VITALS: Ht 165.1 cm; Wt 108.9 kg
[2025-05-01] MEDS ORDERED: LIDOCAINE 2%HCL (LOCAL ANESTH.) INJ 20ML MDV IJ PRN (11:30)
--- NOTE | 2025-05-01 11:59 | DVHHP2 ---
OB CC & HPI Date Date of Admission: May 01, 2025 Patient Identification: : 2 Para: 1 EDC: May 10, 2025 EGA: 38.5wks Chief Complaints: Reason for admission: rupture of membranes Indication for induction: other (PROM) History of Present Complaints HPI: 35yo IUP @ 38.5wks. Pt reports leaking fluid starting today 05/01/25 at 0800, clear fluid. Denies UC's/VB/CHING/vision changes/RUQ pain. Endorses +FM. PNC: Routine PNC at [facility] OB, adequate visits, PNC complicated by GDMA1. dating based on 6wk sono, GBS negative. OB hx: x1, 6lb 11oz complicated by PPH, denies blood transfusion Past Medical History Cardiac: No pertinent Hx Pulmonary: No pertinent Hx Central Nervous System: Seizure (Epilepsy, last seizure 7 years ago0) GI: No pertinent Hx Hemotology/Oncology: No pertinent Hx Hepatobiliary: No pertinent Hx Psychiatric: No pertinent Hx Musculoskeletal: No pertinent Hx Rheumotologic: No pertinent Hx Infectious Disease: No peritnent Hx ENT: No pertinent Hx Renal/: No pertinent Hx Endocrine: No pertinent Hx Dermatology: No pertinent Hx Past Surgical History: No pertinent Hx OB History OB History Care: Good Care Ultrasounds: Normal mid trimester US Obstetrical Complications: Gestational Diabetes Medical Complications: Neurological Allergies: Coded Allergies: NO KNOWN ALLERGIES (Unverified , 05/01/25) Home Meds Reported Medications Levetiracetam (Keppra) 250 Mg Tab, 250 MG PO for 30 Days, MG 03/28/25 Vit W/ Ferrous Fumara ( One Daily) Daily Tab, 1 TAB PO DAILY, #30 TAB 11 Refills 02/28/25 Home Meds Keppra 1500mg QHS Current Medications Current Medications Medications (Trade) Dose Ordered Sig/Sienna Route PRN Reason Start Time Stop Time Status Last Admin Lactated Ringer's 1,000 ml @ 125 mls/hr Q8H IV 05/01/25 11:30 Witch [place]idy (Tucks) 1 pad PRN PRN TOP PERINEAL AREA DISCOMFORT 05/01/25 11:30 Sodium Lauryl Sulfate (Phisoderm) 240 ml PRN PRN TOP PERINEAL AREA DISCOMFORT 05/01/25 11:30 Benzocaine (Dermoplast) 1 applic PRN PRN TOP PERINEAL AREA DISCOMFORT 05/01/25 11:30 Lidocaine HCl (Xylocaine) 20 ml ONCE PRN IJ PERINEAL AREA DISCOMFORT 05/01/25 11:30 Misoprostol (Cytotec) 50 mcg Q4HPRN PRN PO CERVICAL RIPENING 05/01/25 12:00 UNV Family & Social History Family/Social History Past Family/Social History: Denies Blood Type: O+ Rubella: immune RPR/VDRL: Negative GBS Status: Negative HBsAG: Negative Review of Systems Constitutional: No symptom reported Ears, Nose, & Throat: No symptom reported Eyes: No symptom reported Pulmonary/Respiratory: No symptom reported Cardiovascular: No symptom reported Gastrointestinal: No symptom reported Genitourinary: No symptom reported Musculoskeletal: No symptom reported Skin: No symptom reported Psychiatric: No symptom reported Endocrine: No symptom reported Hemotologic/Lymphatic: No symptom reported OB Admission Exam Physical Exam Vitals: VSS, see CPN HEENT: TMs Normal, Fontanelles Normal, Nasal Mucosa Normal, Eyes non-injected, Oropharynx Normal, PERRLA, Moist Membranes, EOMI Heart: Rhythm Normal Lungs: Clear Abdomen: Gravid Extremities: Normal Reflexes: Normal Pelvic Exam: O: VSS EFW - 7lb0oz with Dr. Greenwood on Wednesday04/24/25 SVE - 3/40/-3, Vtx, by RN Membranes: Ruptured Amniotic Fluid: Clear Heart Rate: 130's Accelerations: Accelerations Present Decelerations: No Decelerations Huc Ob Variability: Average (6-25) Contractions on Admission: >10 Minutes Apart Intensity: Mild OB Plan Plan Admitting Diagnosis: PROM Plan: Induction Induction Methd: Misoprostol protocol Other Plan: A: 35yo IUP@38.5wks Induction of Labor Premature rupture of membranes Gestational Diabetes, Diet Controlled Epilepsy Category I EFM GBS negative P: Admit to L&D Informed consent obtained Discussed risks, benefits, alternatives of IOL for PROM with pt. Pt consents to IOL with cytotec. monitoring per order Routine labs ordered Pain mgmt PRN Frequent position changes in and out of bed encouraged Limit SVE unless necessary Intrauterine resuscitation PRN Anticipate Continue Keppra 1500mg QHS CNM is comanaging with Dr. Preston. Visit Coding OBGYN Date of Service: May 01, 2025 Billing Provider: MENDEZ GARCIA CNM LEAD APPLICATION ARCHITECT Common Visit Codes: [id number] INP/OBS CARE (HIGH) LEAD APPLICATION ARCHITECT Procedure Codes: 44584-87- NON-STRESS TEST MENDEZ GARCIA CNM May 01, 2025 11:58
[2025-05-01 12:16] LABS: Hematocrit 38.3 % (36.0-46.0); Hemoglobin 13.4 g/dL (12.2-16.2); Mean Corpuscular Hemoglobin 31.4 pg (28.0-32.0); Mean Corpuscular Volume 89.7 fL (80.0-100.0); Nucleated Red Blood Cells % 0.0 %
[2025-05-01 12:32] LABS: Albumin 4.0 g/dL (3.2-4.8); Alkaline Phosphatase 79 U/L (46-116); Anion Gap 11 (5-15); BUN/Creatinine Ratio 9.0 (10.0-20.0); Glucose 83 mg/dL (74-106); Potassium 3.9 mmol/L (3.5-5.1); Sodium 137 mmol/L (136-145); Total Protein 6.4 g/dL (5.7-8.2)
[2025-05-01 12:33] LABS: Bilirubin, Total 0.3 mg/dL (0.2-1.0)
[2025-05-01 12:34] LABS: INR 0.94 (0.9-1.15); Partial Thromboplastin Time 29.0 SEC (24.5-34.5); Prothrombin Time 10.0 sec (9.3-11.8)
[2025-05-01 12:38] LABS: Alanine Aminotransferase 9 U/L (7-40); Blood Urea Nitrogen 6 mg/dL (9-23); Calcium 8.7 mg/dL (8.7-10.4); Carbon Dioxide 19 mmol/L (20-31); Chloride 107 mmol/L (98-107)
[2025-05-01 13:21] LABS: Urine Amorphous Crystal MOD /hpf (None Seen); Urine Protein, UAD 1+ (Negative)
[2025-05-01 13:24] LABS: Amphetamine Screen, Urine Neg (NEGATIVE); Barbiturate Scree,Urine Neg (NEGATIVE); Benzodiazephine Screen, Urine Neg (NEGATIVE); Cannabinoid Screen, Urine Neg (NEGATIVE); Cocaine Screen, Urine Neg (NEGATIVE); Opiate Scree,Urine Neg (NEGATIVE); Phencyclidine Screen, Urine Neg (NEGATIVE)
[2025-05-01] MEDS: PHISODERM TOP SOLN 240ML BTL TOP PRN (16:51)
[2025-05-01] MEDS: DERMOPLAST 60ML BOTTLE TOP PRN (16:51)
[2025-05-01] MEDS: WITCH HAZEL-GLYCERIN PAD TOP PRN (16:51)
[2025-05-01] MEDS ORDERED: TERBUTALINE SULFATE 1 MG/ML 1ML VIAL SC PRN (17:45)
--- NOTE | 2025-05-01 18:01 | DVHPN2 ---
CNM Labor Progress Note Date and Time Seen Date Seen: May 01, 2025 Time Seen: 17:15 Subjective Patient reports: Feels worse Objective Vital Signs VSS, see CPN Monitoring Method Monitoring Method: External Heart Rate Heart Rate Baseline: 130 Heart Rate Variability: Moderate Presence of FHR Accelerations: Yes Presence of FHR Decelerations: No Are all 5 Components of the FH: Yes Contractions Contractions Frequency: Occasional Duration of Contraction: 60 Contractions Intensity: Mild Contractions Resting Tone: Relaxed Membranes Membranes: Ruptured Amniotic Fluid Color: Clear Vaginal Exam Vag Exam Deferred: No Vaginal Exam Dilation: 5 Vaginal Exam Effacement: 60 Vaginal Exam Station: -2 Vaginal Exam Presentation: VTX Vaginal Exam Show: None Medications Medications - Pitocin: No Medications - Pain Medications: PRN Medication - Epidural: No Medication - Other S/P cytotec x1 Lab Results Lab Results Current Medications Medications (Trade) Dose Ordered Sig/Sienna Start Time Stop Time Status Last Admin Dose Admin Lactated Ringer's 1,000 ml @ 125 mls/hr Q8H 05/01/25 11:30 Kuldip Moody (Tucks) 1 pad PRN PRN 05/01/25 11:30 05/01/25 16:51 1 PAD Sodium Lauryl Sulfate (Phisoderm) 240 ml PRN PRN 05/01/25 11:30 05/01/25 16:51 240 ML Benzocaine (Dermoplast) 1 applic PRN PRN 05/01/25 11:30 05/01/25 16:51 1 APPLIC Lidocaine HCl (Xylocaine) 20 ml ONCE PRN 05/01/25 11:30 Oxytocin 500 ml @ 999 mls/hr Q31M ONCE 05/01/25 11:30 05/01/25 12:00 DC Oxytocin 500 ml @ 125 mls/hr Q4H ONCE 05/01/25 12:00 05/01/25 15:59 DC Misoprostol (Cytotec) 50 mcg Q4HPRN PRN 05/01/25 12:00 05/01/25 13:12 50 MCG Levetiracetam (Keppra Tablet) 1,500 mg HS 05/01/25 22:00 UNV Oxytocin 1,000 ml @ 6 ml/hr Q24H 05/01/25 17:45 UNV Terbutaline Sulfate (Brethine Inj) 0.25 mg ONCE PRN 8/26/25 17:45 UNV Laboratory Tests Test 05/01/25 15:18 05/01/25 11:41 05/01/25 10:50 Range/Units POC Glucose 108 H 70-106 mg/dl White Blood Count 10.9 H 4.4-10.8 10^3/uL Red Blood Count 4.27 4.0-5.20 10^6/uL Hemoglobin 13.4 12.2-16.2 g/dL Hematocrit 38.3 36.0-46.0 % Mean Corpuscular Volume 89.7 80.0-100.0 fL Mean Corpuscular Hemoglobin 31.4 28.0-32.0 pg Mean Corpuscular Hemoglobin Concent 35.0 32.0-36.0 g/dL Red Cell Distribution Width 14.3 11.8-14.3 % Platelet Count 249 140-450 10^3/uL Mean Platelet Volume 7.8 6.9-10.8 fL Neutrophils (%) (Auto) 80.2 H 37.0-80.0 % Lymphocytes (%) (Auto) 15.2 10.0-50.0 % Monocytes (%) (Auto) 4.0 0.0-12.0 % Eosinophils (%) (Auto) 0.3 0.0-7.0 % Basophils (%) (Auto) 0.3 0.0-2.0 % Neutrophils # (Auto) 8.7 H 1.6-8.6 10 ^3/uL Lymphocytes # (Auto) 1.7 0.4-5.4 10 ^3/uL Monocytes # (Auto) 0.4 0-1.3 10 ^3/uL Eosinophils # (Auto) 0 0-0.8 10 ^3/uL Basophils # (Auto) 0 0-0.2 10 ^3/uL Nucleated Red Blood Cells 0.0 % Prothrombin Time 10.0 9.3-11.8 sec Prothrombin Time INR 0.94 0.9-1.15 Activated Partial Thromboplast Time 29.0 24.5-34.5 SEC Sodium Level 137 136-145 mmol/L Potassium Level 3.9 3.5-5.1 mmol/L Chloride Level 107 98-107 mmol/L Carbon Dioxide Level 19 L 20-31 mmol/L Anion Gap 11 5-15 Blood Urea Nitrogen 6 L 9-23 mg/dL Creatinine 0.67 0.550-1.02 mg/dL Glomerular Filtration Rate Calc 118 >90 mL/min BUN/Creatinine Ratio 9.0 L 10.0-20.0 Serum Glucose 83 74-106 mg/dL Calcium Level 8.7 8.7-10.4 mg/dL Total Bilirubin 0.3 0.2-1.0 mg/dL Aspartate Amino Transferase (AST) 13 13-40 U/L Alanine Aminotransferase (ALT) 9 7-40 U/L Alkaline Phosphatase 79 46-116 U/L Total Protein 6.4 5.7-8.2 g/dL Albumin 4.0 3.2-4.8 g/dL Treponema pallidum Antibody Non-reactive Negative Hepatitis C Antibody Negative Negative Urine Color Light-orange Yellow Urine Clarity Ex.turbid Clear Urine pH 5.5 5.0-9.0 Urine Specific [place] 1.034 1.001-1.035 Urine Protein 1+ H Negative Urine Ketones 2+ H Negative Urine Blood Negative Negative /uL Urine Nitrite Negative Negative Urine Bilirubin Negative Negative Urine Urobilinogen Normal Negative mg/dL Urine Leukocyte Esterase Negative Negative /uL Urine RBC None seen 0 - 4 /hpf Urine Microscopic WBC < 1 0-5 /HPF Urine Squamous Epithelial Cells Few <5 /hpf Urine Amorphous Crystals Mod None Seen /hpf Urine Bacteria None seen None Seen /hpf Urine Mucus Few None Seen Urine Glucose Normal Normal mg/dL Placental [id number] Positive Urine Opiates Screen Neg NEGATIVE Urine Fentanyl Screen Neg NEGATIVE Urine Barbiturates Screen Neg NEGATIVE Urine Phencyclidine Screen Neg NEGATIVE Urine Amphetamines Screen Neg NEGATIVE Urine Benzodiazepines Screen Neg NEGATIVE Urine Cocaine Screen Neg NEGATIVE Urine Cannabinoids Screen Neg NEGATIVE Assessment Assessment A: 35yo IUP@38.5wks Induction of Labor Premature rupture of membranes Gestational Diabetes, Diet Controlled Epilepsy Category I EFM GBS negative Plan Plan P: Discussed risks, benefits, alternatives of pitocin. monitoring per order Pain mgmt PRN Frequent position changes in and out of bed encouraged Limit SVE unless necessary Intrauterine resuscitation PRN Anticipate Continue Keppra 1500mg QHS CNM is comanaging with Dr. Preston. Plan discussed with: Patient Visit Coding OBGYN Date of Service: May 01, 2025 Billing Provider: MENDEZ GARCIA CNM INCINERATOR PLANT SUPERVISOR Common Visit Codes: [id number] INP/OBS CARE(HIGH) MENDEZ GARCIA [facility] May 01, 2025 18:01
[2025-05-01] MEDS ORDERED: LACTATED RINGER'S 500 ML IV ONE (18:30)
[2025-05-01] MEDS: LACT. RINGERS/OXYTOCIN 20UNITS 1,000 ML IV SCH (21:03)
[2025-05-01] MEDS: ROPIVACAINE HCL 100 ML ONE (21:05)
[2025-05-01] MEDS: levETIRAcetam 500 MG TAB PO SCH (21:38)
--- NOTE | 2025-05-01 22:35 | DVHPN2 ---
CNM Labor Progress Note Date and Time Seen Date Seen: May 01, 2025 Time Seen: 22:15 Subjective Patient reports: Feels worse Subjective Comment S Patient consents to IUPC placement after discussion, declines FSE. complaining of left sided pain after epidural Objective Vital Signs VSS, See CPN Monitoring Method Monitoring Method: External Heart Rate Heart Rate Baseline: 130 Heart Rate Variability: Moderate Presence of FHR Accelerations: Yes Presence of FHR Decelerations: No Changes in Trends of Patterns: No Are all 5 Components of the FH: Yes Contractions Contractions Frequency: Occasional Duration of Contraction: 60 Contractions Intensity: Moderate Contractions Resting Tone: Relaxed Membranes Membranes: Ruptured Amniotic Fluid Color: Clear Vaginal Exam Vag Exam Deferred: No (IUPC inserted left anterior) Vaginal Exam Dilation: 6 Vaginal Exam Effacement: 70 Vaginal Exam Station: -2 Vaginal Exam Presentation: VTX Vaginal Exam Show: None Medications Medications - Pitocin: Yes (2mu/min) Medication - Epidural: Yes Lab Results Lab Results Current Medications Medications (Trade) Dose Ordered Sig/Sienna Start Time Stop Time Status Last Admin Dose Admin Lactated Ringer's 1,000 ml @ 125 mls/hr Q8H 05/01/25 11:30 Witch [place]idy (Tucks) 1 pad PRN PRN 05/01/25 11:30 05/01/25 16:51 1 PAD Sodium Lauryl Sulfate (Phisoderm) 240 ml PRN PRN 05/01/25 11:30 05/01/25 16:51 240 ML Benzocaine (Dermoplast) 1 applic PRN PRN 05/01/25 11:30 05/01/25 16:51 1 APPLIC Lidocaine HCl (Xylocaine) 20 ml ONCE PRN 05/01/25 11:30 Oxytocin 500 ml @ 999 mls/hr Q31M ONCE 05/01/25 11:30 05/01/25 12:00 DC Oxytocin 500 ml @ 125 mls/hr Q4H ONCE 05/01/25 12:00 05/01/25 15:59 DC Misoprostol (Cytotec) 50 mcg Q4HPRN PRN 05/01/25 12:00 05/01/25 13:12 50 MCG Levetiracetam (Keppra Tablet) 1,500 mg HS 05/01/25 22:00 05/01/25 21:38 1,500 MG Oxytocin 1,000 ml @ 6 ml/hr Q24H 05/01/25 17:45 05/01/25 21:03 6 ML/HR Terbutaline Sulfate (Brethine Inj) 0.25 mg ONCE PRN 05/01/25 17:45 Ephedrine Sulfate (ePHEDrine SULFATE) 10 mg PRN ONCE 05/01/25 18:30 05/01/25 18:44 DC Lactated Ringer's 500 ml @ 500 mls/hr Q1H ONCE 05/01/25 18:30 05/01/25 19:29 DC Laboratory Tests Test 05/01/25 20:08 05/01/25 11:41 05/01/25 10:50 Range/Units POC Glucose 119 H 70-106 mg/dl White Blood Count 10.9 H 4.4-10.8 10^3/uL Red Blood Count 4.27 4.0-5.20 10^6/uL Hemoglobin 13.4 12.2-16.2 g/dL Hematocrit 38.3 36.0-46.0 % Mean Corpuscular Volume 89.7 80.0-100.0 fL Mean Corpuscular Hemoglobin 31.4 28.0-32.0 pg Mean Corpuscular Hemoglobin Concent 35.0 32.0-36.0 g/dL Red Cell Distribution Width 14.3 11.8-14.3 % Platelet Count 249 140-450 10^3/uL Mean Platelet Volume 7.8 6.9-10.8 fL Neutrophils (%) (Auto) 80.2 H 37.0-80.0 % Lymphocytes (%) (Auto) 15.2 10.0-50.0 % Monocytes (%) (Auto) 4.0 0.0-12.0 % Eosinophils (%) (Auto) 0.3 0.0-7.0 % Basophils (%) (Auto) 0.3 0.0-2.0 % Neutrophils # (Auto) 8.7 H 1.6-8.6 10 ^3/uL Lymphocytes # (Auto) 1.7 0.4-5.4 10 ^3/uL Monocytes # (Auto) 0.4 0-1.3 10 ^3/uL Eosinophils # (Auto) 0 0-0.8 10 ^3/uL Basophils # (Auto) 0 0-0.2 10 ^3/uL Nucleated Red Blood Cells 0.0 % Prothrombin Time 10.0 9.3-11.8 sec Prothrombin Time INR 0.94 0.9-1.15 Activated Partial Thromboplast Time 29.0 24.5-34.5 SEC Sodium Level 137 136-145 mmol/L Potassium Level 3.9 3.5-5.1 mmol/L Chloride Level 107 98-107 mmol/L Carbon Dioxide Level 19 L 20-31 mmol/L Anion Gap 11 5-15 Blood Urea Nitrogen 6 L 9-23 mg/dL Creatinine 0.67 0.550-1.02 mg/dL Glomerular Filtration Rate Calc 118 >90 mL/min BUN/Creatinine Ratio 9.0 L 10.0-20.0 Serum Glucose 83 74-106 mg/dL Calcium Level 8.7 8.7-10.4 mg/dL Total Bilirubin 0.3 0.2-1.0 mg/dL Aspartate Amino Transferase (AST) 13 13-40 U/L Alanine Aminotransferase (ALT) 9 7-40 U/L Alkaline Phosphatase 79 46-116 U/L Total Protein 6.4 5.7-8.2 g/dL Albumin 4.0 3.2-4.8 g/dL Treponema pallidum Antibody Non-reactive Negative Hepatitis C Antibody Negative Negative Urine Color Light-orange Yellow Urine Clarity Ex.turbid Clear Urine pH 5.5 5.0-9.0 Urine Specific [place] 1.034 1.001-1.035 Urine Protein 1+ H Negative Urine Ketones 2+ H Negative Urine Blood Negative Negative /uL Urine Nitrite Negative Negative Urine Bilirubin Negative Negative Urine Urobilinogen Normal Negative mg/dL Urine Leukocyte Esterase Negative Negative /uL Urine RBC None seen 0 - 4 /hpf Urine Microscopic WBC < 1 0-5 /HPF Urine Squamous Epithelial Cells Few <5 /hpf Urine Amorphous Crystals Mod None Seen /hpf Urine Bacteria None seen None Seen /hpf Urine Mucus Few None Seen Urine Glucose Normal Normal mg/dL Placental [id number]-4-[id number] Positive Urine Opiates Screen Neg NEGATIVE Urine Fentanyl Screen Neg NEGATIVE Urine Barbiturates Screen Neg NEGATIVE Urine Phencyclidine Screen Neg NEGATIVE Urine Amphetamines Screen Neg NEGATIVE Urine Benzodiazepines Screen Neg NEGATIVE Urine Cocaine Screen Neg NEGATIVE Urine Cannabinoids Screen Neg NEGATIVE Assessment Assessment A: 35yo IUP@38.5wks Induction of Labor Premature rupture of membranes Gestational Diabetes, Diet Controlled Epilepsy Category I EFM GBS negative Plan Plan P: Continue IV pitocin titration per order. monitoring per order Pain mgmt epidural in place, encouraged to use PCEA pump Frequent position changes in bed Limit SVE unless necessary Intrauterine resuscitation PRN Anticipate Continue Keppra 1500mg QHS ALFRED is co-managing with Dr. Preston. Plan discussed with: Patient Visit Coding OBGYN Date of Service: May 01, 2025 Billing Provider: MENDEZ GARCIA CNM CULTURE MANAGER Common Visit Codes: [id number] INP/OBS CARE(HIGH) MENDEZ GARCIA CNM May 01, 2025 22:35
[2025-05-01] MEDS: LACTATED RINGER'S 1,000 ML IV SCH (23:00)
[2025-05-02] MEDS ORDERED: ONDANSETRON HCL 4 MG/2 ML VIAL IV PRN
[2025-05-02] MEDS: METHYLERGONOVINE MALEATE 0.2 MG/ML AMP IM ONE ×2 (00:50→00:51)
[2025-05-02] MEDS: LACT. RINGERS/OXYTOCIN 20UNITS 500 ML IV ONE ×2 (00:51→04:59)
[2025-05-02] MEDS: ceFAZolin 2 GM/D5W50ml 50 ML IV ONE (01:25)
--- NOTE | 2025-05-02 01:28 | LDN2 ---
Labor and Delivery Note Date 05/02/25 Age 35 2 Para 2 now AB 0 EDC 05/10/25 EGA 38.6wks Diagnosis IOL for PROM then GDMA1 and epilepsy Vaginal Delivery: VTX Vacuum Assisted: No Placenta: Spontaneous Sex: Female Weight pending Apgars 9/9 Nuchal Cord Transected: No Amniotic Fluid: Clear Anesthesia epidural Episiotomy: No Extension: No Repaired with 3-0 vicryl EBL QBL 150ml Labs Blood Bank 05/01/25 11:41: Blood Type O POSITIVE Complications none Conditions stable Agile Developer Somu Comments/Significant Med Abiel At 0026 this 35yo now delivered a viable Female by w/ APGARS /9. TXA 1g IVPB given. ZIGGY presentation and loose body cord x1 that reduced after . Infant placed skin to skin on pts chest. Cord clamped and cut after pulsation ceased. Cord blood sent. Intact 3-vessel cord placenta delivered spontaneously, Max. Pitocin IV bolus started. Methergine IM x1 given. Placenta sent to pathology. Patient had epidural anesthesia. Cervix/vagina inspected (intact) and first degree perineal laceration present which was repaired with 3-0 vicryl suture. Manual sweep done and uterus cleared of all clots. Ancef 2g IVPB ordered to be given within 1 hour. Fundus 2-U, firm, midline, and light lochia. QBL 150ml. VSS. Count correct x2. Patient to care and baby to couplet care, both stable. Visit Coding OBGYN Date of Service: May 02, 2025 Billing Provider: MENDEZ GARCIA CNM SONAR TECHNICIAN Common Visit Codes: PROCEDURE ONLY SONAR TECHNICIAN Procedure Codes: [id number] DEL INCLUDING MENDEZ GARCIA CNM May 02, 2025 01:28
[2025-05-02 03:30] VITALS: BP 102/58; PULSE 95; RESP 18; TEMP 98.6; O2SAT 100
[2025-05-02 06:45] VITALS: BP 129/74; PULSE 90; RESP 18; TEMP 98.5; O2SAT 96
[2025-05-02] MEDS ORDERED: OXYTOCIN 10UNIT/ML 1ML VIAL IV ONE (07:04)
[2025-05-02] MEDS: IBUPROFEN 600 MG TAB PO PRN (07:24)
[2025-05-02] MEDS: DOCUSATE SOD 100 MG CAP PO SCH (09:50)
[2025-05-02] MEDS: PRENATAL VITAMIN TAB PO SCH (09:50)
[2025-05-02] MEDS: ACETAMINOPHEN 325 MG TAB PO PRN (11:49)
[2025-05-02 16:00] VITALS: BP 112/57; PULSE 90; RESP 18; TEMP 98.3; O2SAT 98
[2025-05-02 19:30] VITALS: BP 112/71; PULSE 78; RESP 17; TEMP 97.8; O2SAT 99
[2025-05-02 23:00] VITALS: BP_SYST 11; BP_SYST 111; BP_DIAS 71; PULSE 65; RESP 16; TEMP 98.1; O2SAT 98
--- NOTE | 2025-05-03 00:44 | DVHPN2 ---
Progress Note Date Seen: May 03, 2025 Subjective Patient is sitting up in bed, the baby. States she is feeling well SUBJECTIVE -Lochia minimal -Tolerating regular diet well. -Ambulating and voiding well w/o feeling lightheaded or dizzy. -Passing flatus but no BM yet -Breast feeding. - Contraceptive plan: Patient would like to use COCPs when indicated -Desires and requests to be discharged home today (05/03) vital signs Vital Sign Date Time Temp Pulse Resp B/P (MAP) Pulse Ox O2 Delivery O2 Flow Rate FiO2 05/02/25 23:00 98.1 65 16 11 (51) 98 98.1 05/02/25 19:30 Room Air Total Intake and Output 05/02/25 05/02/25 05/03/25 15:00 23:00 07:00 Output Total 500 ml Balance -500 ml medications Current Medications Medications Dose Ordered Sig/Sienna Route Start Time Stop Time Status Last Admin Dose Admin Kuldip Hopkinsel 1 pad PRN PRN TOP 05/01/25 11:30 05/01/25 16:51 1 PAD Sodium Lauryl Sulfate 240 ml PRN PRN TOP 05/01/25 11:30 05/01/25 16:51 240 ML Benzocaine 1 applic PRN PRN TOP 05/01/25 11:30 05/01/25 16:51 1 APPLIC Levetiracetam 1,500 mg HS PO 05/01/25 22:00 05/02/25 21:55 1,500 MG Ibuprofen 600 mg Q6HP PRN PO 05/02/25 01:30 05/02/25 16:10 600 MG Acetaminophen 650 mg Q6HPRN PRN PO 05/02/25 01:30 05/02/25 11:49 650 MG Prenat Multivit/ [place]/Iron/Folic Ac 1 DAILY PO 05/02/25 10:00 05/02/25 09:50 1 Docusate Sodium 200 mg DAILY PO 05/02/25 10:00 05/02/25 09:50 200 MG laboratory and microbiology Laboratory Tests 05/01/25 11:41 Test 05/01/25 11:41 Range/Units Serum Glucose 83 74-106 mg/dL Objective OBJECTIVE -A&O x4. No apparent distress. Affect appropriate -Afebrile, VSS -Chest: heart and lung sounds normal. -Breasts: Nipples intact w/o cracks or soreness -Abdomen: normal BS, soft, non-tender, no rebound or guarding, fundus firm @ U- 1, lochia minimal -Perineum: no edema, or erythema, Incision site with sutures intact, edges in good approximation. -Extremities: no edema or tenderness Problems(with codes): (1) (normal spontaneous vaginal delivery) (2) First degree perineal laceration during delivery Assessment/Plan ASSESSMENT -35 yo now ppd #1 s/p doing well. -Blood Type: O+ -Breast feeding -Rubella Immune -Epilepsy -GDMA1 PLAN -Continue pain management with oral medications as previously ordered -Increase fluid intake and fiber in diet to promote regular bowel movements, Laxative PRN -Encouraged patient to continue taking vitamin, iron, and Keppra as previously ordered -Educated patient on self care and warning signs of PPH, PPD, and pre-eclampsia. Answered all pt questions and concerns -Continue routine care and anticipate discharge today Plan discussed with: Patient, Spouse Visit Coding OBGYN Date of Service: May 03, 2025 Billing Provider: JESSICA WEINER CNM INFORMATION TECHNOLOGY ANALYST Common Visit Codes: [id number] INP/OBS CARE(HIGH) JESSICA WEINER CNM May 03, 2025 00:44
--- NOTE | 2025-05-03 00:47 | DVHDS2 ---
Obstetrics Discharge Summary Obstetrics Discharge Summary Date of Admission: May 01, 2025 Date of Discharge: May 03, 2025 Reason For Admission: Onset of Labor Intrapartum Procedures: Spontaneous vaginal deliv Operative Complicat: Laceration (first degree Perineal) Discharge Diagnosis: Term -Delivered Discharge Information: Activity (Unrestricted. Advance as tolerated. Balance activities with rest periods. No heavy lifting, pushing or straining. Pelvic rest x 6 weeks), Diet (Routine regular diet rich in fiber, protein, iron and vitamin C with adequate fluid intake. Retest A1C or GTT before 6 week PP visit), Medications (Ibuprofen 600mg every 6 hours as needed for pain. Colace 100mg twice a day as needed to keep bowel movements soft and prevent constipation. Continue Vitamin and iron), Discharge to (Home), Discarge date (05/03/25) Discharge Care Plan Instructions - self care instructions given - emergency signs and symptoms including but not limited to pre-eclampsia precautions and signs of infection, PPH & of PPD reviewed with patient. -Follow up with OB Provider in 2 weeks and again at 6 weeks Visit Coding OBGYN Date of Service: May 03, 2025 Billing Provider: JESSICA WEINER CNM AUTOMOBILE DESIGNER Common Visit Codes: [id number]-ILF/OBS DISCH DAY >30MIN JESSICA WEINER CNM May 03, 2025 00:47
[2025-05-03] MEDS ORDERED: DOCU-94 PO (00:49)
[2025-05-03] MEDS ORDERED: IBU600T PO (00:49)
--- NOTE | 2025-05-03 01:03 | DVHDS2 ---
ASSESSMENT ASSESSMENT Hospital Course Sara Lucero was admitted on 05/01/25 at 38w5d for PROM, clear fluid. Patient augmented with misoprostol PO and pitocin IV. Got labor epidural for pain relief. She progressed to 2nd stage of labor and had a with first degree perineal laceration. Normal course; meeting milestones w/o any problem or complications. Assessment IUP at 38+ weeks 1st degree perineal laceration A1GDM Epilepsy Problems: (1) (normal spontaneous vaginal delivery) (2) First degree perineal laceration during delivery (3) GDM, class A1 JESSICA WEINER CNM May 03, 2025 01:03
[2025-05-03 03:15] VITALS: BP 102/60; PULSE 88; RESP 16; TEMP 98.1; O2SAT 99
[2025-05-03 05:42] LABS: Hematocrit 34.3 % (36.0-46.0); Hemoglobin 12.2 g/dL (12.2-16.2); Mean Corpuscular Hemoglobin 32.0 pg (28.0-32.0); Mean Corpuscular Volume 89.9 fL (80.0-100.0); Nucleated Red Blood Cells % 0.0 %
[2025-05-03 07:00] VITALS: BP 121/81; PULSE 66; RESP 20; TEMP 97.9; O2SAT 99
[2025-05-03 11:03] VITALS: BP 111/58; PULSE 66; RESP 16; TEMP 98.8; O2SAT 99
== END 2025-05-03 12:30 | disposition home or self-care (01) | DRG 806 ==
LOC: LDRP 10:25 → OBSVTOIN 11:28 → LDRP 05-02 09:08
PROVIDERS: ADMIT Obstetrics & Gynecology; ATTEND Obstetrics & Gynecology
PROC: 10E0XZZ Delivery of Products of Conception, External Approach (ICD-10-PCS; principal; 2025-05-02)
PROC: 0HQ9XZZ Repair Perineum Skin, External Approach (ICD-10-PCS; 2025-05-02)
PROC: 3E033VJ Introduction of Other Hormone into Peripheral Vein, Percutaneous Approach (ICD-10-PCS; 2025-05-02)
DX: O24.420 Gestational diabetes mellitus in childbirth, diet controlled (principal); O99.354 Diseases of the nervous system complicating childbirth; Z37.0 Single live birth; O42.92 Full-term premature rupture of membranes, unspecified as to length of time between rupture and onset of labor; G40.909 Epilepsy, unspecified, not intractable, without status epilepticus; E66.01 Morbid (severe) obesity due to excess calories; Z3A.38 38 weeks gestation of pregnancy; O70.0 First degree perineal laceration during delivery
CPT/HCPCS: 36415; 59409; 62282; 80053; 80307; 81001; 82962; 84112; 85025; 85610; 85730; 86780; 86803; 86850; 86900; 86901; 94760; 94762; 96360; 96361; 96365; 96366; 96372; G0378; J2590